=== PATIENT | female | born 1965 | race African-American/Black ===

== ENCOUNTER 2019-09-22 13:23 | Emergency (ER) | payer OTHER, BC ==
[2019-09-22 13:37] VITALS: BP 150/86; PULSE 94; TEMP 97.5; BMI 31.5
--- NOTE | 2019-09-22 13:38 | PDOC ---
Rapid Medical Evaluation Chief Complaint: Injury Time Seen by Provider: 09/22/19 13:33 Medical Evaluation: Allergies Allergy/AdvReac Type Severity Reaction Status Date / Time No Known Allergies Allergy Verified 09/22/19 13:36 Vital Signs Temp Pulse Resp BP Pulse Ox 97.5 F L 94 H 18 150/86 100 09/22/19 13:33 09/22/19 13:33 09/22/19 13:33 09/22/19 13:33 09/22/19 13:33 09/22/19 13:37 CC: right sided facial pain s/p trip and fall PE: no foacl findings. Orders: nothing Patient will proceed to ED for complete evaluation. Discharge Disposition - Diagnosis Fall - Referrals - Patient Instructions - Post Discharge Activity
[2019-09-22] MEDS ORDERED: IBUPROFEN 600 MG TABLET (FP) PO ONE ×2 (14:15→14:19)
--- NOTE | 2019-09-22 14:26 | PDOC ---
History of Present Illness - General Chief Complaint: Injury Stated Complaint: FALL Time Seen by Provider: 09/22/19 13:33 History Source: Patient Exam Limitations: No Limitations - History of Present Illness Initial Comments: 09/22/19 14:21 54-year-old female denies past medical history presents complaining of mechanical slip and fall outside of the hospital prior to arrival. Struck the right side of her head against the wall and then landed on the right side of her body. Denies LOC, neck pain, headache, nausea, vomiting, chest pain, abdominal pain, back pain or any other injury. States she had a mechanical slip and fall 4 days ago on the right side of her body, no head strike at that time. Was seen at an urgent care center 4 days ago with an unremarkable exam. Patient has been sore for the past 4 days. Took ibuprofen 400 mg at approximately 7 AM today. ROS: GENERAL/CONSTITUTIONAL: No fever, chills, weakness, dizziness HEAD, EYES, EARS, NOSE AND THROAT: Ache over her right eyebrow, no changes in vision, No ear pain or discharge, No sore throat CARDIOVASCULAR: No chest pain RESPIRATORY: No shortness of breath or cough GASTROINTESTINAL: No pain, nausea, vomiting, diarrhea or constipation GENITOURINARY: No dysuria MUSCULOSKELETAL: No neck or back pain SKIN: No rash NEUROLOGIC: No headache, vertigo, loss of consciousness, or loss of sensation PE: GENERAL: well-appearing, NAD HEAD: NCAT, less than 0.5 cm superficial abrasion above her right eyebrow, no active bleeding, minimal swelling, no ecchymoses and no bony tenderness to palpation over the orbits EYES: Pupils equal, round and reactive to light, sclera anicteric, conjunctiva clear ENT: Normal bilateral ear canals and TMs, pharynx: no erythema, no exudate, uvula midline NECK: supple CHEST: nontender RESP: clear, no w/r/r CARDIO: rrr, no m/g/r ABD: +BS, soft, nontender, non distended BACK: no midline spinal ttp, no CVAT EXTREMITIES: Normal range of motion, no edema NEUROLOGICAL: Normal speech, normal gait SKIN: Warm, Dry Is this a multiple visit Asthma Patient?: No Past History - Past Medical History Allergies/Adverse Reactions: Allergies Allergy/AdvReac Type Severity Reaction Status Date / Time No Known Allergies Allergy Verified 09/22/19 13:36 Home Medications: Ambulatory Orders No Home Medications 0 dose .ROUTE UTDICT 12/02/12 Naproxen [Naprosyn -] 500 mg PO BID #20 tablet 07/14/14 COPD: No GI Disorders: Yes (hiatal hernia) - Immunization History Immunization Up to Date: Yes - Psycho Social/Smoking Cessation Hx Smoking Status: No Smoking History: Never smoked Have you smoked in the past 12 months: No Number of Cigarettes Smoked Daily: 0 Information on smoking cessation initiated: No Hx Alcohol Use: No Drug/Substance Use Hx: No *Physical Exam - Vital Signs Last Vital Signs Temp Pulse Resp BP Pulse Ox 97.5 F L 94 H 18 150/86 100 09/22/19 13:33 09/22/19 13:33 09/22/19 13:33 09/22/19 13:33 09/22/19 13:33 ED Treatment Course - Medications Given in the ED: ED Medications Discontinued Medications Generic Name Dose Route Start Last Admin Trade Name Sonyq PRN Reason Stop Dose Admin Ibuprofen 600 mg 09/22/19 14:15 09/22/19 14:20 Motrin - PO 09/22/19 14:16 600 mg ONCE ONE Administration Medical Decision Making - Medical Decision Making 09/22/19 14:25 54-year-old female denies past medical history presents complaining of the above right eyebrow status post mechanical slip and fall outside of the hospital prior to arrival. Hospital security filed an incident report. Superficial abrasion to right eyebrow and minimal swelling without tenderness to palpation over the orbits Abrasion cleaned and bacitracin applied Patient is ambulatory No ibuprofen 600 mg x 1 dose Stable for discharge 09/22/19 14:26 Discharge - Discharge Information Problems reviewed: Yes Clinical Impression/Diagnosis: Fall Qualifiers: Encounter type: initial encounter Qualified Code(s): W19.XXXA - Unspecified fall, initial encounter Condition: Stable Disposition: HOME - Admission No - Follow up/Referral - Patient Discharge Instructions Additional Instructions: Apply ice to area, keep abrasion clean and dry Apply bacitracin twice a day Alternate between acetaminophen and ibuprofen every 6 hours as needed for pain Follow-up with your primary care doctor in 1 week Return to ED if nausea, vomiting, headache, neck pain or any worsening symptoms - Post Discharge Activity Work/Back to School Note: Back to Work
== END 2019-09-22 14:39 | disposition home or self-care (01) ==
LOC: JERFT 13:23
DX: S00.211A Abrasion of right eyelid and periocular area, initial encounter (principal); W01.198A Fall on same level from slipping, tripping and stumbling with subsequent striking against other object, initial encounter; Y93.89 Activity, other specified; Y92.238 Other place in hospital as the place of occurrence of the external cause; Y99.8 Other external cause status
CPT/HCPCS: 99282-25